=== PATIENT | female | born 1985 | race Caucasian/White ===

== ENCOUNTER 2018-07-26 21:13 | Emergency (ER) | payer OTHER ==
[2018-07-26 22:14] LABS: Absolute Lymphocytes (CBC) 1.8 K/uL (0.7-4.9); Absolute Monocytes 0.8 K/uL (0.1-1.3); Absolute Neutrophil 8.6 K/uL (1.8-8.0); Basophils % 0.2 % (0-1.3); Eosinophils % 0.4 % (0-4.4); Hematocrit 37.8 % (36.0-45.0); MPV 8.9 fL (7.6-11.3); Monocytes % 7.3 % (3.3-12.3)
[2018-07-26 22:17] LABS: Protime INR 1.08
[2018-07-26 22:32] LABS: ALT/SGPT 25 U/L (12-78); AST/SGOT 14 U/L (15-37); Alkaline Phosphatase 62 U/L (45-117); BUN Blood Urea Nitrogen 14 mg/dL (7-18); Bicarbonate 29 mmol/L (21-32); Bilirubin Direct < 0.1 mg/dL (0-0.2); Bilirubin Total 0.3 mg/dL (0.2-1.0); Glucose Level 104 mg/dL (74-106); Magnesium 2.4 mg/dL (1.8-2.4); NT PRO-BNP 17 pg/mL (<125); Potassium 3.9 mmol/L (3.5-5.1); Sodium Level 144 mmol/L (136-145); Troponin (Emerg Dept Use Only) < 0.02 ng/mL (0.0-0.045)
--- NOTE | 2018-07-27 00:47 | EDPHYS ---
Physician Documentation [facility] Name: Neha Carlisle Age: 32 yrs Sex: Female : 1985 Arrival Date: 07/26/2018 Time: 21:18 Bed 17 Private MD: Oscar Ortiz T ED Physician Imer Saldivar HPI: 07/27 00:00 This 32 yrs old Female presents to ER via Ambulatory with complaints of chest pm1 pain. 00:00 The patient or guardian reports chest pain that is located primarily in the mid-sternal pm1 area. The pain does not radiate. Associated signs and symptoms: Pertinent positives: vomiting, Pertinent negatives: dizziness, headache, shortness of breath. The chest pain is described as aching. Duration: The patient or guardian reports a single episode, that is now resolved. Modifying factors: The symptoms are alleviated by nothing. the symptoms are aggravated by Medication. Severity of pain: in the emergency department the pain has resolved is a 0 / 10. The patient has been recently seen by a physician: the patient's primary care provider, Dr. Ortiz Patient seen for cough for 5 days. Given a prescription for cefuroxime and guaifenesin with codeine. After taking the medication, patient experienced chest pain and one episode of vomiting. Patient's first time taking these two medications. 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 - Social history:: Smoking status: Patient/guardian denies using tobacco. - Ebola Screening: : Patient negative for fever greater than or equal to 101.5 degrees Fahrenheit, and additional compatible Ebola Virus Disease symptoms Patient denies exposure to infectious person Patient denies travel to an Ebola-affected area in the 21 days before illness onset No symptoms or risks identified at this time. ROS: 01/11 00:00 Constitutional: Negative for fever, chills, and weight loss, Eyes: Negative for injury, pm1 pain, redness, and discharge, ENT: Negative for injury, pain, and discharge, Neck: Negative for injury, pain, and swelling. Respiratory: Negative for shortness of breath, cough, wheezing, and pleuritic chest pain, Abdomen/GI: Negative for abdominal pain, nausea, vomiting, diarrhea, and constipation, Back: Negative for injury and pain, : Negative for injury, bleeding, discharge, and swelling, MS/Extremity: Negative for injury and deformity, Skin: Negative for injury, rash, and discoloration. Neuro: Negative for headache, weakness, numbness, tingling, and seizure. Cardiovascular: Positive for chest pain, Negative for edema, orthopnea, palpitations. Exam: 00:00 Constitutional: This is a well developed, well nourished patient who is awake, alert, pm1 and in no acute distress. Head/Face: Normocephalic, atraumatic. Eyes: Pupils equal round and reactive to light, extra-ocular motions intact. Lids and lashes normal. Conjunctiva and sclera are non-icteric and not injected. Cornea within normal limits. Periorbital areas with no swelling, redness, or edema. ENT: Nares patent. No nasal discharge, no septal abnormalities noted. Tympanic membranes are normal and external auditory canals are clear. Oropharynx with no redness, swelling, or masses, exudates, or evidence of obstruction, uvula midline. Mucous membranes moist. Neck: Trachea midline, no thyromegaly or masses palpated, and no cervical lymphadenopathy. Supple, full range of motion without nuchal rigidity, or vertebral point tenderness. No Meningismus. Chest/axilla: Normal chest wall appearance and motion. Nontender with no deformity. No lesions are appreciated. Cardiovascular: Regular rate and rhythm with a normal S1 and S2. No gallops, murmurs, or rubs. Normal PMI, no JVD. No pulse deficits. Respiratory: Lungs have equal breath sounds bilaterally, clear to auscultation and percussion. No rales, rhonchi or wheezes noted. No increased work of breathing, no retractions or nasal flaring. Abdomen/GI: Soft, non-tender, with normal bowel sounds. No distension or tympany. No guarding or rebound. No evidence of tenderness throughout. 00:00 Back: No spinal tenderness. No costovertebral tenderness. Full range of motion. Skin: Warm, dry with normal turgor. Normal color with no rashes, no lesions, and no evidence of cellulitis. MS/ Extremity: Pulses equal, no cyanosis. Neurovascular intact. Full, normal range of motion. 00:00 sinus bradycardia BPM 50 00:00 Neuro: Orientation: is normal, Motor: is normal, Sensation: is normal, no obvious gross deficits. Vital Signs: 07/26 21:31 BP 104 / 73; Pulse 70; Resp 20; Temp 98.9; Pulse Ox 100% on R/A; Weight 81.65 kg; aj Height 5 ft. 5 in. (165.10 cm); 22:22 BP 94 / 71; Pulse 66; Resp 16 S; Pulse Ox 98% on R/A; jd3 23:07 BP 95 / 57; Pulse 69; Resp 15 S; Pulse Ox 99% on R/A; jd3 07/27 00:07 BP 103 / 70; Pulse 56; Resp 16 S; Pulse Ox 98% on R/A; jd3 07/26 21:31 Body Mass Index 29.95 (81.65 kg, 165.10 cm) aj MDM: 07/26 21:41 Patient medically screened. pm1 07/27 00:43 Data reviewed: vital signs. Data interpreted: Pulse oximetry: on room air is 98 %. pm1 Interpretation: normal. Counseling: I had a detailed discussion with the patient and/or guardian regarding: the historical points, exam findings, and any diagnostic results supporting the discharge/admit diagnosis, lab results, radiology results, the need for outpatient follow up, to return to the emergency department if symptoms worsen or persist or if there are any questions or concerns that arise at home. 07/26 21:49 Order name: NT PRO-BNP; Complete Time: 22:46 pm1 07/26 21:49 Order name: Basic Metabolic Panel; Complete Time: 22:46 pm1 07/26 21:49 Order name: CBC with Diff; Complete Time: 22:46 pm1 07/26 21:49 Order name: LFT's; Complete Time: 22:46 pm1 07/26 21:49 Order name: Magnesium; Complete Time: 22:46 pm1 07/26 21:49 Order name: PT-INR; Complete Time: 22:46 pm1 07/26 21:49 Order name: Troponin (emerg Dept Use Only); Complete Time: 22:46 pm1 07/26 21:49 Order name: XRAY Chest (1 view) pm1 07/26 21:49 Order name: EKG; Complete Time: 21:49 pm1 07/26 21:49 Order name: Cardiac monitoring; Complete Time: 22:15 pm1 07/26 21:49 Order name: EKG - Nurse/Tech; Complete Time: 22:15 pm1 07/26 21:49 Order name: Flu; Complete Time: 22:46 pm1 07/26 21:49 Order name: Strep; Complete Time: 22:46 pm1 07/26 22:20 Order name: Throat Culture [facility] 07/26 21:49 Order name: IV Saline Lock; Complete Time: 22:06 pm1 07/26 21:49 Order name: Labs collected and sent; Complete Time: 22:06 pm1 07/26 21:49 Order name: O2 Per Protocol; Complete Time: 21:52 pm1 07/26 21:49 Order name: O2 Sat Monitoring; Complete Time: 21:51 pm1 Administered Medications: No medications were administered Disposition: 02:03 Co-signature as Attending Physician, Imer Saldivar MD I agree with the assessment and mi plan of care. Disposition: 07/27/18 00:46 Discharged to Home. Impression: Chest pain, unspecified. - Condition is Stable. - Discharge Instructions: Nonspecific Chest Pain. - Medication Reconciliation Form, Thank You Letter, Antibiotic Education form. - Follow up: Emergency Department; When: As needed; Reason: Worsening of condition. Follow up: Private Physician; When: 2 - 3 days; Reason: Recheck today's complaints, Continuance of care, Re-evaluation by your physician. - Problem is new. - Symptoms have improved. Signatures: Dispatcher [employer] [facility] Yancy Leiva RN RN aj Marinas, Patrick, ANODISER ANODISER pm1 Imer Saldivar MD MD wa Davies, Jonathon, RN RN jd3 Corrections: (The following items were deleted from the chart) 00:59 00:46 07/27/2018 00:46 Discharged to Home. Impression: Chest pain, unspecified. jd3 Condition is Stable. Forms are Medication Reconciliation Form, Thank You Letter, Antibiotic Education, Prescription Opioid Use. Follow up: Emergency Department; When: As needed; Reason: Worsening of condition. Follow up: Private Physician; When: 2 - 3 days; Reason: Recheck today's complaints, Continuance of care, Re-evaluation by your physician. Problem is new. Symptoms have improved. pm1
--- NOTE | 2018-07-27 00:47 | ER ---
Nurse's Notes [facility] Name: Neha Carlisle Age: 32 yrs Sex: Female : 1985 Arrival Date: 07/26/2018 Time: 21:18 Bed 17 Private MD: Oscar Ortiz T Diagnosis: Chest pain, unspecified Presentation: 07/26 21:28 Presenting complaint: Patient states: Sudden onset chest pain, vomiting, anxiety that aj started today 30 min after taking Ceftriaxone and Cheratussin tonight for the first time. Transition of care: patient was not received from another setting of care. Onset of symptoms was July 26, 2018. Risk Assessment: Do you want to hurt yourself or someone else? Patient reports no desire to harm self or others. Initial Sepsis Screen: Does the patient meet any 2 criteria? No. Patient's initial sepsis screen is negative. Does the patient have a suspected source of infection? No. Patient's initial sepsis screen is negative. Care prior to arrival: None. 21:28 Method Of Arrival: Ambulatory aj 21:28 Acuity: GENNA 3 aj Triage Assessment: 21:31 General: Appears in no apparent distress. comfortable, Behavior is calm, cooperative, aj appropriate for age. Pain: Denies pain. Neuro: Level of Consciousness is awake, alert, obeys commands, Oriented to person, place, time, situation, Appropriate for age. Cardiovascular: Reports chest pain. Respiratory: Airway is patent Respiratory effort is even, unlabored, Respiratory pattern is regular, symmetrical. GI: Reports nausea, vomiting. Derm: Skin is intact, is healthy with good turgor, Skin is pink, warm \T\ dry. normal. 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 - Social history:: Smoking status: Patient/guardian denies using tobacco. - Ebola Screening: : Patient negative for fever greater than or equal to 101.5 degrees Fahrenheit, and additional compatible Ebola Virus Disease symptoms Patient denies exposure to infectious person Patient denies travel to an Ebola-affected area in the 21 days before illness onset No symptoms or risks identified at this time. Screenin:44 Abuse screen: Denies threats or abuse. Nutritional screening: No deficits noted. jd3 Tuberculosis screening: No symptoms or risk factors identified. Fall Risk Ambulatory Aid- None/Bed Rest/Nurse Assist (0 pts). Gait- Normal/Bed Rest/Wheelchair (0 pts) Mental Status- Oriented to own ability (0 pts). Total Williamson Fall Scale indicates No Risk (0-24 pts). Assessment: 21:42 General: Appears uncomfortable, Behavior is cooperative, appropriate for age, anxious. jd3 Pain: Complains of pain in mid-sternal area and epigastric area Quality of pain is described as sharp. Neuro: Level of Consciousness is awake, alert, obeys commands, Oriented to person, place, time, situation. Cardiovascular: Heart tones S1 S2 present Capillary refill < 3 seconds Patient's skin is warm and dry. Respiratory: Reports shortness of breath cough that is Airway is patent Respiratory effort is even, unlabored, Respiratory pattern is regular, symmetrical, Breath sounds are clear bilaterally. GI: Abdomen is round non-distended, Bowel sounds present X 4 quads. Abd is soft and non tender X 4 quads. Reports upper abdominal pain, nausea, vomiting, Patient currently denies constipation, diarrhea. : No signs and/or symptoms were reported regarding the genitourinary system. EENT: No signs and/or symptoms were reported regarding the EENT system. Derm: Skin is intact, Skin is dry, Skin is normal, Skin temperature is warm. Musculoskeletal: Circulation, motion, and sensation intact. Range of motion: intact in all extremities. 22:22 Reassessment: Patient appears in no apparent distress at this time. Patient and/or jd3 family updated on plan of care and expected duration. Pain level reassessed. Patient is alert, oriented x 3, equal unlabored respirations, skin warm/dry/pink. 23:07 Reassessment: Patient appears in no apparent distress at this time. Patient and/or jd3 family updated on plan of care and expected duration. Pain level reassessed. Patient is alert, oriented x 3, equal unlabored respirations, skin warm/dry/pink. 07/27 00:07 Reassessment: Patient appears in no apparent distress at this time. Patient and/or jd3 family updated on plan of care and expected duration. Pain level reassessed. Patient is alert, oriented x 3, equal unlabored respirations, skin warm/dry/pink. Patient states feeling better. 00:58 Reassessment: Patient appears in no apparent distress at this time. Patient and/or jd3 family updated on plan of care and expected duration. Pain level reassessed. Patient is alert, oriented x 3, equal unlabored respirations, skin warm/dry/pink. pt reported understanding of discharge instructions. Vital Signs: 07/26 21:31 BP 104 / 73; Pulse 70; Resp 20; Temp 98.9; Pulse Ox 100% on R/A; Weight 81.65 kg; aj Height 5 ft. 5 in. (165.10 cm); 22:22 BP 94 / 71; Pulse 66; Resp 16 S; Pulse Ox 98% on R/A; jd3 23:07 BP 95 / 57; Pulse 69; Resp 15 S; Pulse Ox 99% on R/A; jd3 07/27 00:07 BP 103 / 70; Pulse 56; Resp 16 S; Pulse Ox 98% on R/A; jd3 07/26 21:31 Body Mass Index 29.95 (81.65 kg, 165.10 cm) ED Course: 07/26 21:18 Patient arrived in ED. am2 21:19 Oscar Ortiz MD is Private Physician. am2 21:29 Triage completed. aj 21:31 Arm band placed on right wrist. Patient placed in an exam room. aj 21:34 Judd Salinas NP is PHCP. pm1 21:34 Imer Saldivar MD is Attending Physician. pm1 21:38 Jose Miguel Ortiz RN is Primary Nurse. jd3 21:44 Patient has correct armband on for positive identification. Bed in low position. Call jd3 light in reach. Side rails up X 1. Adult w/ patient. 22:00 Inserted saline lock: 20 gauge in right antecubital area, using aseptic technique. jd3 Blood collected. 22:32 XRAY Chest (1 view) In Process Unspecified. EDMS 01/11 00:54 No provider procedures requiring assistance completed. IV discontinued, intact, jd3 bleeding controlled, No redness/swelling at site. Pressure dressing applied. Administered Medications: No medications were administered Outcome: 00:46 Discharge ordered by MD. pm1 00:57 Discharged to home ambulatory, with family. jd3 00:57 Condition: stable 00:57 Discharge instructions given to patient, family, Instructed on discharge instructions, follow up and referral plans. Demonstrated understanding of instructions, follow-up care. 00:59 Patient left the ED. jd3 Signatures: Dispatcher [employer] EDYancy Spencer, RN RN Judd Smith NP CANCER GENETIC COUNSELOR pm1 Yancy Sinha am2 Jose Miguel Ortiz RN RN jd3 Corrections: (The following items were deleted from the chart) 00:57 07/26 23:45 Inserted saline lock: 20 gauge in right antecubital area, using aseptic jd3 technique. Blood collected. jd3
--- NOTE | 2018-07-27 07:46 | RAD REPORT ---
EXAM DESCRIPTION: Leroy Single View07/26/2018 10:32 pm CLINICAL HISTORY: Chest pain COMPARISON: none FINDINGS: The lungs appear clear of acute infiltrate. The heart is normal size IMPRESSION: No acute abnormalities displayed
--- NOTE | 2018-07-27 09:39 | EKG ---
Test Date: 2018-07-26 Test Time: 22:10:04 Byproducts Extractor: NIHARIKA MEASUREMENT RESULTS: Intervals: Rate: 50 SC: 126 QRSD: 96 QT: 468 QTc: 426 [place]: P: 45 SC: 126 QRS: 53 T: 52 INTERPRETIVE STATEMENTS: Sinus bradycardia Otherwise normal ECG No previous ECG available for comparison Electronically Signed On 07-27-18 09:38:12 CLINICAL TRAINER by Andrew Torres
== END 2018-07-27 00:59 | disposition home or self-care (01) ==
LOC: ER 21:13
DX: R07.9 Chest pain, unspecified (principal); E03.9 Hypothyroidism, unspecified; Z79.899 Other long term (current) drug therapy
CPT/HCPCS: 36415; 71045; 80048; 80076; 83735; 83880; 84484; 85025; 85610; 87070; 87081; 87804; 93005; 99284

== ENCOUNTER 2019-01-21 08:32 | Day surgery (SDC) | payer BC ==
[2019-01-16 16:33] LABS: Basophils % 0.6 % (0-1.3); Eosinophils % 1.3 % (0-4.4); Hematocrit 36.5 % (36.0-45.0); Lymphocytes % 29.6 % (15.3-44.8); MPV 9.5 fL (7.6-11.3); Monocytes % 5.8 % (3.3-12.3); RBC Red Blood Cell Count 4.57 M/uL (3.86-4.86)
[2019-01-16 16:46] LABS: Potassium 3.8 mmol/L (3.5-5.1)
[2019-01-16 17:17] LABS: ALT/SGPT 21 U/L (12-78); AST/SGOT 15 U/L (15-37); Albumin 4.1 g/dL (3.4-5.0); Alkaline Phosphatase 57 U/L (45-117); Amylase Level 45 U/L (25-115); Bilirubin Direct < 0.1 mg/dL (0-0.2); Bilirubin Total 0.2 mg/dL (0.2-1.0); Lipase 160 U/L (73-393); Protein, Total 7.8 g/dL (6.4-8.2)
[2019-01-21] MEDS: Ringers Lactate 1,000 ML IV ONE (08:40)
[2019-01-21 09:09] LABS: Specific Gravity 1.025 (1.005-1.030)
[2019-01-21] MEDS ORDERED: CEFOXITIN/SWI 1gm 1 GM/10 ML SYR ONE (09:24)
[2019-01-21] MEDS ORDERED: FENTANYL CITR 100 MCG/2 ML ONE (10:13)
[2019-01-21] MEDS ORDERED: MIDAZOLAM HCL 2 MG/2 ML INJ ONE (10:13)
[2019-01-21] MEDS ORDERED: PROPOFOL 200 MG/20 ML VIAL IV ONE (10:13)
[2019-01-21] MEDS ORDERED: LIDOCAINE 2% MPF 5 ML VIAL ONE (10:14)
[2019-01-21] MEDS ORDERED: ROCURONIUM 50 MG/5 ML VIAL IV ONE (10:15)
[2019-01-21] MEDS ORDERED: ONDANSETRON 4 MG/2 ML VIAL ONE (10:15)
[2019-01-21] MEDS ORDERED: EPHEDRINE SULF 50 MG/ML VIAL ONE (10:56)
--- NOTE | 2019-01-21 10:59 | P.BOP ---
Preoperative diagnosis: symptomatic cholelithiasis Postoperative diagnosis: same Primary procedure: Laparoscopic cholecystectomy Observer Gravity Prospecting: Naomi Shankar (Kerri) Estimated blood loss: <10cc Specimen: gb Findings: as above Anesthesia: General Complications: None Transferred to: Recovery Room Condition: Good
[2019-01-21] MEDS: HYDROMORPHONE HCL 1 MG/ML INJ ONE ×4 (11:11→11:50)
[2019-01-21] MEDS ORDERED: NEOSTIGMINE 1 MG/ML -10 ML VIAL ONE (11:13)
[2019-01-21] MEDS ORDERED: GLYCOPYRROLATE 0.2 MG/ML SYR ONE (11:13)
[2019-01-21] MEDS ORDERED: KETOROLAC 30 MG/ML INJ ONE (11:20)
[2019-01-21] MEDS ORDERED: PROMETHAZINE 25 MG/ML VIAL ONE (11:25)
--- NOTE | 2019-01-21 22:13 | OP ---
Date of Procedure: 01/21/2019 Surgeon: Shayan Parkinson MD Community Support Specialist: Naomi Shankar. Preoperative Diagnosis: Symptomatic cholelithiasis. Postoperative Diagnosis: Symptomatic cholelithiasis. Procedure: Laparoscopic cholecystectomy. Specimen: Gallbladder. Anesthesia: General plus local. Indications: This is the case of a 33-year-old patient, who comes to us with above diagnosis. Fully explained the benefit, alternatives, and risks of laparoscopic, possible open cholecystectomy, which include but not limited to infection, bleeding, damage to adjacent structures, anesthesia complicati on, choledocholithiasis, bile leak, pancreatitis, [place], and even . She also understands this may not relieve any symptoms and she might need more than one surgical intervention. She understood, sig ely the consent. Description Of Procedure: The patient was brought to the operating room, placed in supine position. Anesthesia was done without complication. Abdominal area was prepped and draped in usual sterile fa shion. Marcaine 0.5% was injected for local anesthetic, followed by sharp incision of the skin in th e infraumbilical region. Incision was carried down to the fascia, which was opened under direct visi on. Peritoneum was encountered, opened under direct vision. Vicryl #1 placed on each side of the fa scia. Cat trocar was carefully introduced and pneumoperitoneum was obtained. I placed 3 more tro cars, 5 mm each one of them, in the right upper quadrant using same technique under direct visualizat ion. Some adhesions of the omentum to the liver and the gallbladder need to be removed first in orde r for us to continue with the surgery, so we used Endo Galen, connected to Bovie cauterizer to achie ve that. No bleeding. No enterotomies. At that moment, I proceeded to put a grasper in the fundus of the gallbladder, another grasper in the infundibulum, retracted the gallbladder in the inferolater al fashion exposing the triangle of Calot obtaining critical view of safety. Cystic duct and cystic artery were clearly isolated and freed circumferentially, and a connection between those and the gall bladder was clearly identified. I proceeded to ligate those by using at least 3 clips proximal and 1 clip distal, ligation in middle. Same was done with the cystic artery. No bile leak. No bleeding. The gallbladder was removed from liver using Bovie cauterizer and removed from abdominal cavity usi ng an EndoCatch through the umbilical incision. The area was inspected once again. No bile leak. N o bleeding. At that moment, I proceeded to remove the trocars under direct vision. Deflated the pne umoperitoneum. Closed the fascia with #1 Vicryl. Irrigated the subcutaneous tissues, closed that wi th 3-0 chromic and the skin in subcuticular fashion with 3-0 chromic and Steri-Strips on top. Sponge count and instrument counts were correct. The patient tolerated the procedure well. The patient wa s sent to recovery in stable condition. CARLOS/YANNICK Voice ID: [id number] Report ID: [id number]
--- NOTE | 2019-01-21 22:20 | DS ---
Date of Discharge: 01/21/2019 Diagnosis: Symptomatic cholelithiasis. Procedure: Laparoscopic cholecystectomy. Disposition: Home. Activities: As tolerated, no heavy lifting. Followup: Follow up in my office in 1 week, call for appointment on [phone]. Keep area dry for 48 hours, then may shower. Keep Steri-Strip intact. Medications: For medications, see orders. CARLOS/YANNICK Voice ID: [id number] Report ID: [id number]
== END 2019-01-21 13:35 | disposition home or self-care (01) ==
LOC: OR 08:32
PROVIDERS: ATTEND Surgery
PROC: 0FT44ZZ Resection of Gallbladder, Percutaneous Endoscopic Approach (ICD-10-PCS; principal; 2019-01-21 10:45)
DX: K80.10 Calculus of gallbladder with chronic cholecystitis without obstruction (principal); E03.9 Hypothyroidism, unspecified; J45.909 Unspecified asthma, uncomplicated; Z80.1 Family history of malignant neoplasm of trachea, bronchus and lung
CPT/HCPCS: 36415; 80048; 80076; 81025; 82150; 83690; 85025; 88304; J1170; J2250; J2405; J2550; J2704; J2710; J3010

== ENCOUNTER 2023-10-26 20:52 | Observation (INO) | payer BC, OTHER ==
--- OUTSIDE RECORDS SUMMARY | 2023-10-26 20:54 | XMS REPORT | Continuity of Care Document ---
Author Name Unknown Address [address] [place] [address] [facility] thconnect Address [address] [place] [address] Care Team Providers Care Pari Mutuel Ticket Seller Name Role Phone HARRIET MTZ Primary Care Physician Unavaila hero LYNNE Attending Clinician Unavailable AMADOU RAMIREZ Attending Clinician Unavailable GUERA Admitting Clinician Unavailable Payers Payer Name Policy Type Policy Number Effective Date Expirati on Date Source [facility] [id number] 2017 00:00:00 Allergies, Adverse Reactions, Alerts Allergy Name Allergy Type Status Severity Reaction(s) Onset Date Inactive Date Treating Clinician Comments Source NO KNOWN ALLERGIE S Drug Class Active [facility] Encounters Start Date/Time End Date/Time Encounter Type Admission Type Attending Clinicians Care Facility Care Department Encounter ID Source 2022-01-25 04:45:00 2022-01-25 04:45:00 Outpatient NATALIA FELDMAN [facility] [id number] [facility] 2021-07-23 13:43:00 2021-07-23 14:19:00 Emergency X AMADOU RAMIREZ [facility] ERT [id number] [facility]
[2023-10-26] MEDS ORDERED: ONDANSETRON 4 MG/2 ML VIAL ONE (21:30)
[2023-10-26] MEDS ORDERED: FAMOTIDINE 20 MG/2 ML VIAL IV ONE (21:31)
[2023-10-26] MEDS ORDERED: MORPHINE 4 MG/ML SYR ONE (21:31)
[2023-10-26] MEDS ORDERED: NA CHLORIDE 0.9% 1,000 ML ONE (21:31)
[2023-10-26 21:37] LABS: Absolute Lymphocytes (CBC) 1.7 K/uL (0.7-4.9); Absolute Monocytes 0.6 K/uL (0.1-1.3); Absolute Neutrophil 8.2 K/uL (1.8-8.0); Basophils % 0.2 % (0-1.3); Eosinophils % 0.4 % (0-4.4); Hematocrit 39.9 % (36.0-45.0); Hemoglobin 13.9 g/dL (12.0-15.0); MCH 31.5 pg (27.0-35.0); MCHC 34.8 g/dL (32.0-36.0); MCV 90.4 fL (80-100); MPV 8.1 fL (7.6-11.3); Monocytes % 5.6 % (3.3-12.3); Neutrophils % 77.8 % (41.7-73.7); Platelets 240 thou/uL (152-406); RBC Red Blood Cell Count 4.41 M/uL (3.86-4.86)
[2023-10-26 21:59] LABS: Albumin 3.9 g/dL (3.4-5.0); Anion Gap 6.6 mEq/L (5.0-15.0); Bilirubin Total 0.6 mg/dL (0.2-1.0); Globulin 3.8 g/dL (2.3-3.5); Potassium 3.6 mEq/L (3.5-5.1); Protein, Total 7.7 g/dL (6.4-8.2)
[2023-10-26 22:26] LABS: Specific Gravity > 1.030 (1.005-1.030); Urine Bacteria <20 /HPF (<20); Urine Bilirubin NEGATIVE (Negative); Urine Blood Negative (Negative); Urine Clarity Extremely Turbid (Clear); Urine Color Yellow (Yellow); Urine Crystals Unidentified Few /HPF (None Seen); Urine Culture Reflex Order REFLEXED; Urine Glucose NEGATIVE (Negative); Urine Ketones 1+ (Negative); Urine Microscopic Reflex YN ORDER UMIC; Urine Mucus 4+ /HPF (None Seen); Urine Nitrite NEGATIVE (Negative); Urine Protein 1+ (Negative); Urine Urobilinogen Normal (Normal); Urine Yeast (Budding) Trace /HPF (None Seen)
[2023-10-26] MEDS ORDERED: KETOROLAC 30 MG/ML INJ ONE (23:06)
[2023-10-27] MEDS ORDERED: PIPERACIL/TAZO 3.375 GM VIAL IV ONE (00:23)
[2023-10-27] MEDS ORDERED: NA CHLORIDE 0.9% 100 ML ONE (00:23)
--- NOTE | 2023-10-27 00:28 | ER ---
Nurse's Notes [facility] Name: Neha Gautam Age: 38 yrs Sex: Female : 1985 Arrival Date: 10/26/2023 Time: 20:52 Bed 8 Private MD: Diagnosis: acute appendicitis Presentation: 10/25 21:00 Chief complaint: Patient states: Pt c/o severe upper abdominal pain and constant tl4 vomiting since 1930 tonight. Pt states symptoms started immediately after eating. Coronavirus screen: At this time, the client does not indicate any symptoms associated with coronavirus-19. Ebola Screen: No symptoms or risks identified at this time. Initial Sepsis Screen: Does the patient meet any 2 criteria? No. Patient's initial sepsis screen is negative. Does the patient have a suspected source of infection? No. Patient's initial sepsis screen is negative. Risk Assessment: Do you want to hurt yourself or someone else? Patient reports no desire to harm self or others. Onset of symptoms was October 26, 2023 at 19:30. 21:00 Method Of Arrival: Ambulatory tl4 21:00 Acuity: GENNA 3 tl4 Triage Assessment: 21:05 General: Appears uncomfortable, Behavior is cooperative. Pain: Complains of pain in tl4 abdomen. EENT: No signs and/or symptoms were reported regarding the EENT system. Neuro: Level of Consciousness is awake, alert, obeys commands, Oriented to person, place, time, situation, Moves all extremities. Gait is steady. Cardiovascular: Capillary refill < 3 seconds Patient's skin is warm and dry. Respiratory: Airway is patent Respiratory effort is even, unlabored, Respiratory pattern is regular, symmetrical. GI: Reports upper abdominal pain, nausea, vomiting. : No signs and/or symptoms were reported regarding the genitourinary system. Derm: No signs and/or symptoms reported regarding the dermatologic system. Musculoskeletal: No signs and/or symptoms reported regarding the musculoskeletal system. Historical: - Allergies: 21:03 No Known Allergies; tl4 - Home Meds: 21:03 [place] Thyroid Oral [Active]; Spironolactone Oral [Active]; semaglutide (weight loss) tl4 subcutaneous [Active]; - PMHx: 21:03 Clarissa's (Hypothyroidism); tl4 - PSHx: 21:11 Cholecystectomy; tl4 - Immunization history:: Adult Immunizations unknown. - Infectious Disease History:: Denies. - Social history:: Smoking status: Patient denies any tobacco usage or history of. Screenin:33 [facility] ED Fall Risk Assessment (Adult) History of falling in the last 3 months, tm6 including since admission No falls in past 3 months (0 pts). Abuse screen: Denies threats or abuse. Denies injuries from another. Nutritional screening: No deficits noted. Tuberculosis screening: No symptoms or risk factors identified. Assessment: 21:33 General: Appears uncomfortable, Behavior is calm, cooperative. Pain: Complains of pain tm6 in epigastric area Pain currently is 10 out of 10 on a pain scale. Quality of pain is described as sharp, Pain began suddenly, 2 hours ago. Pain: Also complains of nausea. Neuro: No deficits noted. Level of Consciousness is awake, alert, obeys commands, Oriented to person, place, time, situation. Cardiovascular: No deficits noted. Patient's skin is warm and dry. Respiratory: Airway is patent Respiratory effort is even, unlabored, Respiratory pattern is regular, symmetrical. GI: Abdomen is round non-distended, Abd is soft and non tender Reports upper abdominal pain, nausea, vomiting. : No signs and/or symptoms were reported regarding the genitourinary system. EENT: No signs and/or symptoms were reported regarding the EENT system. Derm: No signs and/or symptoms reported regarding the dermatologic system. Musculoskeletal: No signs and/or symptoms reported regarding the musculoskeletal system. 22:30 Reassessment: Patient and/or family updated on plan of care and expected duration. Pain ha1 level reassessed. Patient is alert, oriented x 3, equal unlabored respirations, skin warm/dry/pink. pain unchanged with medication Notified care provider. 23:10 Reassessment: Patient and/or family updated on plan of care and expected duration. Pain tm6 level reassessed. Patient is alert, oriented x 3, equal unlabored respirations, skin warm/dry/pink. 10/26 00:10 Reassessment: Patient and/or family updated on plan of care and expected duration. Pain ha1 level reassessed. Patient is alert, oriented x 3, equal unlabored respirations, skin warm/dry/pink. Vital Signs: 10/25 21:00 BP 105 / 56; Pulse 64; Resp 18; Temp 97.9(O); Pulse Ox 100% on R/A; Weight 86.18 kg; tl4 Height 5 ft. 6 in. ; Pain 8/10; 21:33 BP 107 / 79; Pulse 63; Pulse Ox 100% on R/A; Pain 10/10; tm6 23:10 BP 124 / 84; Pulse 64; Pulse Ox 100% ; Pain 8/10; tm6 10/26 01:38 BP 113 / 68; Pulse 59; Pulse Ox 96% on R/A; tm6 10/25 21:00 Body Mass Index 30.67 (86.18 kg, 167.64 cm) tl4 10/25 21:00 Pain Scale: Adult tl4 21:33 Pain Scale: Adult tm6 23:10 Pain Scale: Adult tm6 ED Course: 10/25 20:56 Patient arrived in ED. ra3 20:57 Nimco Loo PA-C is PHCP. sb4 20:57 Anthony Jones MD is Attending Physician. sb4 21:03 Triage completed. tl4 21:06 Arm band placed on right wrist. tl4 21:21 Laurie Madrid RN is Primary Nurse. tm6 21:30 CBC with Diff Sent. tm6 21:30 CMP Sent. tm6 21:30 Lipase Sent. tm6 21:30 Inserted saline lock: 20 gauge in right antecubital area, using aseptic technique. tm6 21:33 Patient has correct armband on for positive identification. Placed in gown. Bed in low tm6 position. Call light in reach. Side rails up X2. Provided Education on: plan of care. Client placed on continuous cardiac and pulse oximetry monitoring. NIBP monitoring applied. Pulse ox on. NIBP on. Door closed. Noise minimized. Warm blanket given. 23:03 CT Abd/Pelvis - IV Contrast Only In Process Unspecified. EDMS 10/26 00:27 Korina Russo MD is Hospitalizing Provider. sb4 01:37 No provider procedures requiring assistance completed. Patient admitted, IV remains in tm6 place. Administered Medications: 10/25 21:33 Drug: NS 0.9% IV 1000 ml IV at 1 bolus Per protocol; 1000 mL bolus Route: IV; Rate: 1 ha1 bolus; Site: right antecubital; 23:09 Follow up: Response: No adverse reaction; IV Status: Completed infusion; IV Intake: tm6 1000ml 21:33 Drug: Famotidine IVP 20 mg IVP once; dilute with 10 mL 0.9% NaCl; give over 2 minutes ha1 Route: IVP; Site: right antecubital; 21:35 Drug: Ondansetron IVP 4 mg IVP once; over 2 minutes Route: IVP; Site: right antecubital;ha1 21:37 Drug: morphine IVP or IV 4 mg IVP once over 4 mins Route: IVP; Infused Over: 4 mins; ha1 Site: right antecubital; 23:09 Drug: Ketorolac IVP 30 mg IVP once Route: IVP; Site: right antecubital; tm6 04 00:37 Drug: Piperacillin-Tazobactam IVPB 3.375 grams IVPB once over 60 mins; (mix in NS 100 tm6 mL) Route: IVPB; Infused Over: 60 mins; Site: right antecubital; 00:50 Drug: fentaNYL (PF) IVP 50 mcg IVP once Route: IVP; Site: right antecubital; tm6 Medication: 10/25 21:33 VIS not applicable for this client. tm6 Intake: 23:09 IV: 1000ml; Total: 1000ml. tm6 Outcome: 10/26 00:27 Decision to Hospitalize by Provider. sb4 01:38 Admitted to Med/surg accompanied by tech, via wheelchair, with chart, tm6 01:38 Condition: stable 01:38 Instructed on the need for admit, 01:38 Patient left the ED. tm6 Signatures: Dispatcher [employer] EDMS Tyesha Kiran RN RN ha1 Nimco Loo, PABill PABill sb4 Laurie Madrid RN RN tm6 Reymundo Morrissey RN RN tl4 Amina Spencer ra3 Corrections: (The following items were deleted from the chart) 10/25 21:05 21:03 Home Meds: Cheratussin AC 10-100 mg/5 mL Oral liqd 10 mL every 4 hours; tl4 tl4 21:05 21:03 PMHx: Hypothyroidism; tl4 tl4 21:12 21:03 PSHx: None; tl4 tl4
--- NOTE | 2023-10-27 00:28 | EDPHYS ---
Physician Documentation [facility] Name: Neha Gautam Age: 38 yrs Sex: Female : 1985 Arrival Date: 10/26/2023 Time: 20:52 Bed 8 Private MD: ED Physician Anthony Jones HPI: 10/25 21:14 This 38 yrs old Female presents to ER via Ambulatory with complaints of Nausea/Vomiting.sb4 21:14 The patient presents to the emergency department with nausea, vomiting, abdominal pain, sb4 of the epigastric area, right upper quadrant and left upper quadrant. Onset: The symptoms/episode began/occurred just prior to arrival. Possible causes: unknown. The symptoms are aggravated by nothing. The symptoms are alleviated by nothing. The patient has not experienced similar symptoms in the past. The patient has not recently seen a physician. Historical: - Allergies: 21:03 No Known Allergies; tl4 - Home Meds: 21:03 [place] Thyroid Oral [Active]; Spironolactone Oral [Active]; semaglutide (weight loss) tl4 subcutaneous [Active]; - PMHx: 21:03 Clarissa's (Hypothyroidism); tl4 - PSHx: 21:11 Cholecystectomy; tl4 - Immunization history:: Adult Immunizations unknown. - Infectious Disease History:: Denies. - Social history:: Smoking status: Patient denies any tobacco usage or history of. ROS: 21:14 Constitutional: Negative for fever, chills, and weight loss, sb4 21:14 Abdomen/GI: Positive for abdominal pain, nausea and vomiting, 21:14 All other systems are negative, Exam: 21:14 Head/Face: Normocephalic, atraumatic. Eyes: Extra-ocular motions intact. Periorbital sb4 areas with no swelling, redness, or edema. ENT: Mucous membranes moist. Cardiovascular: Regular rate and rhythm with a normal S1 and S2. Respiratory: Lungs have equal breath sounds bilaterally, clear to auscultation and percussion. No rales, rhonchi or wheezes noted. No increased work of breathing, no retractions or nasal flaring. Skin: Warm, dry with normal turgor. Normal color with no rashes, no lesions, and no evidence of cellulitis. MS/ Extremity: Pulses equal, no cyanosis. Neurovascular intact. Full, normal range of motion. 21:14 Constitutional: The patient appears alert, awake, in obvious pain, uncomfortable, 21:14 Abdomen/GI: Inspection: abdomen appears normal, Bowel sounds: normal, Palpation: soft, moderate abdominal tenderness, in the epigastric area, right upper quadrant and left upper quadrant, Vital Signs: 21:00 BP 105 / 56; Pulse 64; Resp 18; Temp 97.9(O); Pulse Ox 100% on R/A; Weight 86.18 kg; tl4 Height 5 ft. 6 in. ; Pain 8/10; 21:33 BP 107 / 79; Pulse 63; Pulse Ox 100% on R/A; Pain 10/10; tm6 23:10 BP 124 / 84; Pulse 64; Pulse Ox 100% ; Pain 8/10; tm6 04 01:38 BP 113 / 68; Pulse 59; Pulse Ox 96% on R/A; tm6 10/25 21:00 Body Mass Index 30.67 (86.18 kg, 167.64 cm) tl4 10/25 21:00 Pain Scale: Adult tl4 21:33 Pain Scale: Adult tm6 23:10 Pain Scale: Adult tm6 MDM: 10/25 21:08 Patient medically screened. sb4 21:14 Differential diagnosis: gastritis, pancreatitis, gastroenteritis. 4 10/26 00:27 Data reviewed: vital signs, nurses notes, lab test result(s), radiologic studies, I sb4 have discussed the patient's presentation/case with the attending Emergency Department Physician; and as a result, I will admit patient. Consideration of Admission/Observation Patient was admitted/placed on observation. Management of patient was discussed with the following: Hospitalist: Dr. Russo. Supervisor [place] Sugar: Dr. Biswas, will take patient to OR in morning. 10/25 21:12 Order name: CBC with Diff; Complete Time: 22:08 [facility] 10/25 21:12 Order name: CMP; Complete Time: 22:08 [facility] 10/25 21:12 Order name: Lipase; Complete Time: 22:08 [facility] 10/25 21:12 Order name: Test, Urine; Complete Time: 22:28 [facility] 10/25 21:12 Order name: Urinalysis w/ reflexes; Complete Time: 22:28 [facility] 10/25 22:30 Order name: Urine Culture [facility] 10/26 00:47 Order name: CBC with Automated Diff EDMS 10/26 00:47 Order name: CBC with Automated Diff [facility] 10/26 00:47 Order name: Comprehensive Metabolic Panel [facility] 10/26 00:47 Order name: Comprehensive Metabolic Panel [facility] 10/25 21:12 Order name: CT Abd/Pelvis - IV Contrast Only sb4 10/26 00:47 Order name: CONS Physician Consult ED[facility] 10/25 21:12 Order name: IV Saline Lock; Complete Time: 21:30 sb4 10/25 21:12 Order name: Labs collected and sent; Complete Time: 21:30 sb4 10/26 00:26 Order name: NPO; Complete Time: 00:37 sb4 Administered Medications: 10/25 21:33 Drug: NS 0.9% IV 1000 ml IV at 1 bolus Per protocol; 1000 mL bolus Route: IV; Rate: 1 ha1 bolus; Site: right antecubital; 23:09 Follow up: Response: No adverse reaction; IV Status: Completed infusion; IV Intake: tm6 1000ml 21:33 Drug: Famotidine IVP 20 mg IVP once; dilute with 10 mL 0.9% NaCl; give over 2 minutes ha1 Route: IVP; Site: right antecubital; 21:35 Drug: Ondansetron IVP 4 mg IVP once; over 2 minutes Route: IVP; Site: right antecubital;ha1 21:37 Drug: morphine IVP or IV 4 mg IVP once over 4 mins Route: IVP; Infused Over: 4 mins; ha1 Site: right antecubital; 23:09 Drug: Ketorolac IVP 30 mg IVP once Route: IVP; Site: right antecubital; tm6 10/26 00:37 Drug: Piperacillin-Tazobactam IVPB 3.375 grams IVPB once over 60 mins; (mix in NS 100 tm6 mL) Route: IVPB; Infused Over: 60 mins; Site: right antecubital; 00:50 Drug: fentaNYL (PF) IVP 50 mcg IVP once Route: IVP; Site: right antecubital; tm6 Disposition: 10/25 23:54 Co-signature as Attending Physician, Anthony Jones MD I agree with the assessment sp4 and plan of care. I reviewed the patient's care provided by the Advanced Practice Provider and agree with the diagnosis and treatment plan. Disposition Summary: 10/27/23 00:27 Hospitalization Ordered Notes: Hospitalization Status: Inpatient Admission sb4 Provider: Korina Russo sb4 Condition: Fair sb4 Problem: new sb4 Symptoms: are unchanged sb4 Bed/Room Type: Standard sb4 Location: Telemetry/MedSurg (Inpatient)(10/27/23 00:50) cg Room Assignment: 203(10/27/23 01:06) jb4 Diagnosis - acute appendicitis sb4 Forms: - Medication Reconciliation Form sb4 - SBAR form sb4 - Leadership Thank You Letter sb4 Signatures: Dispatcher [employer] EDBrit Levi, RN RN cg Socrates Mae RN RN jb4 Tyesha Kiran, RN RN ha1 Nimco Loo PA-C PA-C sb4 Anthony Jones MD MD sp4 Laurie Madrid RN RN tm6 Reymundo Morrissey RN RN tl4 Corrections: (The following items were deleted from the chart) 21:05 21:03 Home Meds: Cheratussin AC 10-100 mg/5 mL Oral liqd 10 mL every 4 hours; tl4 tl4 21:05 21:03 PMHx: Hypothyroidism; tl4 tl4 21:12 21:03 PSHx: None; tl4 tl4 21:13 21:13 CBC+H.LAB.BRZ ordered. EDNH EDMS 21:13 21:13 COMPREHENSIVE METABOLIC PANEL+C.LAB.BRZ ordered. ED[facility] EDMS 21:13 21:13 LIPASE+C.LAB.BRZ ordered. ED[facility] EDMS 21:13 21:13 Test, Urine+UC.LAB.BRZ ordered. EDMS EDMS 21:13 21:13 Urinalysis+U.LAB.BRZ ordered. ED[facility] EDMS 21:13 21:13 Abdomen Pelvis W Con+CT.RAD.BRZ ordered. EDNH ED[facility] 10/26 00:47 00:27 Telemetry/MedSurg (Inpatient) sb4 cg 00:47 00:27 sb4 cg 00:50 00:47 [facility] ER HOLD cg cg 00:50 00:47 ERHOLD- cg cg 00:50 00:50 cg cg 01:06 00:50 231 cg jb4
--- NOTE | 2023-10-27 00:40 | P.HP ---
Certification for Inpatient Patient admitted to: Observation With expected LOS: <2 Midnights Practitioner: I am a practitioner with admitting privileges, knowledge of patient current condition, hospital course, and medical plan of care. Services: Services provided to patient in accordance with Admission requirements found in Title 42 Section 412.3 of the Code of Federal Regulations Patient History Date of Service: 10/27/23 Reason for admission: Abdominal pain History of Present Illness: 38-year-old with past medical history of Clarissa thyroiditis, obesity on Ozempic, cholecystectomy who presented because of new onset nausea and vomiting as well as abdominal pain. Abdominal pain is in the epigastric extending to the right lower quadrant as well as and left lower quadrants. Patient states vomiting is not bilious. No associated chest pain. No fever chills no diarrhea. On arrival in the ED vital signs were stable afebrile, laboratory workup including CBC and BMP were unremarkable. Lipase was normal. CT of the abdomen and pelvics showed evidence of early acute appendicitis. Patient has been admitted for possible surgical resection. Dr. Biswas has been discussed with by emergency room. Allergies No Known Allergies Allergy (Verified 01/16/19 16:07) Home medications list reviewed: Yes Home Medications: Semaglutide [Ozempic] 10 units SQ Q7H 10/27/23 Spironolactone [Aldactone] 50 mg PO BEDTIME 10/27/23 Thyroid,Pork [[place] Thyroid] 60 mg PO DAILY 10/27/23 - Past Medical/Surgical History Has patient received pneumonia vaccine in the past: No Diabetic: No -: Clarissa thyroiditis -: Obesity -: Cholecystectomy - Family History Family History: Reviewed- Non-Contributory - Family History Father -: Liver disease - Social History Smoking Status: Never smoker Place of Residence: Home Review of Systems Gastrointestinal: Nausea, Vomiting, Abdominal Pain Genitourinary: Frequency Physical Examination - Physical Exam General: Alert, Oriented x3, Obese HEENT: Atraumatic, Normocephalic, PERRLA Neck: Supple, 2+ carotid pulse no bruit, JVD not distended Respiratory: Clear to auscultation bilaterally, Normal air movement Cardiovascular: Normal pulses, Regular rate/rhythm, Normal S1 S2 Gastrointestinal: Normal bowel sounds, Soft and benign, Non-distended, No ascites, Other, Tenderness Musculoskeletal: No clubbing, No swelling Integumentary: No rashes, No breakdown, No significant lesion Neurological: Normal gait, Normal speech, Normal strength at 5/5 x4 extr - Studies Laboratory Data (last 24 hrs) 10/26/23 10/26/23 21:28 21:28 WBC 10.60 Hgb 13.9 Hct 39.9 Plt Count 240 Sodium 135 L Potassium 3.6 BUN 13 Creatinine 0.81 Glucose 118 H Total Bilirubin 0.6 AST 23 ALT 27 Alkaline Phosphatase 58 Lipase 35 Assessment and Plan - Problems (Diagnosis) (1) Acute appendicitis Current Visit: Yes Status: Acute (2) Hypothyroidism Current Visit: Yes Status: Acute (3) Obesity Current Visit: Yes Status: Acute - Plan Impression Acute appendicitis Hypothyroidism Obesityon Ozempic Plan Will admit to observation Start empirical antibiotics with cefepime/Flagyl Gentle IV fluids lactated Ringer's Surgical consult N.p.o. past midnight SCDs for DVT prophylaxis Pain control Disposition possible hospital stay for the next 24 to 48 hours Plan to discharge in: 48 Hours - Advance Directives Does patient have a Living Will: No Does patient have a Durable POA for Healthcare: No - Code Status/Comfort Care Code Status: Full Code Physician Review: Patient Assessed, Agree with Above Assessment and Plan
[2023-10-27] MEDS ORDERED: MORPHINE 2 MG/ML SYR IV PRN (00:41)
[2023-10-27] MEDS ORDERED: FENTANYL CITR 100 MCG/2 ML ONE ×2 (00:42→08:47)
[2023-10-27] MEDS ORDERED: D5 0.9 NS 1,000 ML IV SCH (01:00)
[2023-10-27] MEDS: METRONIDAZOLE 500mg IVPB 500 MG/100 ML BAG IV SCH (01:49)
[2023-10-27] MEDS: Ringers Lactate 1,000 ML IV SCH ×2 (01:49→18:00)
[2023-10-27] MEDS: ONDANSETRON 4 MG/2 ML VIAL IV PRN (01:50)
[2023-10-27 02:07] VITALS: BMI 30.7
[2023-10-27] MEDS ORDERED: ONDANSETRON 4 MG/2 ML VIAL IV PRN (02:29)
--- NOTE | 2023-10-27 07:02 | P.PN ---
Date of Service: 10/27/23 Subjective: seen after surgery doing well ambulated to bathroom pain tolerable ROS: 10 point ROS as noted above, otherwise negative Physical Exam: GEN: Alert, oriented, NAD HEENT: Normal conjunctiva, sclera anicteric CV: Regular rate and rhythm, no edema Pulm: Nonlabored respirations on room air, clear bilaterally ABD: Soft, mild abdominal tenderness, surgical dressing c/d/i Neuro: Normal speech, normal affect vitals reviewed Problem List: Acute appendicitis Incidental findings - Multilobulated right adnexa cystic lesion (6.1x3.8 cm); new finding ; s/p R salpingo-oophorectomy right-sided nephrolithiasis Hypothyroidism hx Clarissa thyroiditis Obesity Acute appendicitis Incidental findings - Multilobulated right adnexa cystic lesion (6.1x3.8 cm); new finding ; s/p R salpingo-oophorectomy CT abdomen (10/25): acute appendicitis, Multilobulated right adnexa cystic lesion (6.1x3.8 cm), right-sided nephrolithiasis. no hydro General surgery, Dr. Biswas performed lap appy after Dr. Howard performed R salpingo-oophorectomy and removal of mass continue empiric cefepime / flagyl (10/26-) continue pepcid continue IVF advance diet PRN analgesics / antiemetics Hypothyroidism hx Clarissa thyroiditis take armour thyroid daily; restart tomorrow Obesity on Ozempic VTE: SCD for now given surgery Code: Full Dispo: home, ~1 day
[2023-10-27] MEDS: THYROID 30 MG TAB PO SCH (07:57)
[2023-10-27] MEDS: BUPIVACAINE 0.5% PF 10 ML VIAL ONE (08:37)
[2023-10-27] MEDS ORDERED: LIDOCAINE 2% MPF 5 ML VIAL ONE (08:47)
[2023-10-27] MEDS ORDERED: MIDAZOLAM HCL 2 MG/2 ML INJ ONE (08:47)
[2023-10-27] MEDS ORDERED: ROCURONIUM 50 MG/5 ML VIAL IV ONE (08:47)
[2023-10-27] MEDS ORDERED: propofoL 200 MG/20 ML VIAL IV ONE (08:47)
[2023-10-27] MEDS ORDERED: ONDANSETRON 4 MG/2 ML VIAL ONE (08:47)
[2023-10-27] MEDS: FAMOTIDINE 20 MG/2 ML VIAL IV SCH (09:00)
[2023-10-27] MEDS: CEFEPIME 1 GM in NA CHLORIDE 0.9% 100 ML IV SCH (09:31)
[2023-10-27] MEDS: Ringers Lactate 1,000 ML IV ONE (10:45)
[2023-10-27] MEDS: BUPIVACAINE 0.25% PF 30 ML VIAL ONE (12:36)
[2023-10-27] MEDS ORDERED: dexAMETHasone 4 MG/ML VIAL ONE (12:44)
[2023-10-27] MEDS ORDERED: Mastisol Adhesive Liq ONE (13:33)
--- NOTE | 2023-10-27 13:42 | P.OP ---
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 Howard is going to dictate her portion of the surgery separately. Patient brought to the OR and placed in supine position. General anesthesia began. Patient placed in the lithotomy position. Patient prepped and draped in usual sterile fashion. Dr. Howard performed her procedure at the beginning of the case. After she finished, I started my procedure. The appendix was identified. It was dilated with mild stranding around it consistent with early acute appendicitis. Mesoappendix identified and divided with LigaSure. Endo KARRI stapling device used to divide the base of the appendix on the cecum. There is no evidence of bowel injury or bleeding noted. Right lower quadrant and pelvis irrigated. Effluent clear. Subsequently, all trocars removed under direct vision. #1 Vicryl used to close the fascial defect at the umbilicus. Subcutaneous was irrigated and bleeding controlled cautery. 3-0 chromic used to reapproximate subcutaneous tissue and close skin. Sterile dressing applied and patient awakened. Patient taken to recovery room in good general condition. CC:
--- NOTE | 2023-10-27 14:00 | PREOPCON ---
Date of Consultation: 10/27/2023 Reason For Consultation: Abdominal pain. History Of Present Illness: The patient is a 38-year-old female who presents to the emergency room w ith acute onset of periumbilical pain associated with nausea and vomiting. No diarrhea or constipati on. No blood in her stool. No dysuria, hematuria. No sore throat, runny nose, cough, headaches, or dizziness. No chest pain. No fever or chills. The patient had 3 deliveries, had a bilateral tubal ligation. Review of Systems: Otherwise unremarkable. Past Medical History: Clarissa's thyroiditis, obesity. Past Surgical History: Cholecystectomy. Allergies: NONE. Social History: The patient does not smoke. Drinks occasionally. Family History: Significant for liver disease in the father and lung cancer in the mother. Physical Examination: Vital Signs: Stable. She is afebrile. General: She is awake, alert, oriented x3. Head and Neck: No icterus. No masses. Chest: Clear. Heart: S1, S2. Abdomen: Soft, nondistended. Positive bowel sounds. Mild right lower quadrant tenderness. No rigi dity or guarding. Questionable rebound. Extremities: Adequately perfused. Nontender. Neurologic: Nonfocal. Laboratory Data: White count was 10.6 with a left shift. Chemistry reviewed. TSH is 2.17. Urine h as esterase positive and reflex for culture. CT of the abdomen and pelvis reviewed, shows dilated ap pendix with mild stranding around the appendix consistent with early acute appendicitis. She also huntley s a 6.1 x 3.8 cm multilobulated cystic lesion in the right adnexa. Assessment: A 38-year-old female with early acute appendicitis and right adnexal mass. Recommendation: Discussed the case with Dr. Howard. She will come and evaluate the right adnexal mass and we will proceed with surgery for the diagnostic laparoscopy, laparoscopic appendectomy, and any procedure that Dr. Howard seems appropriate for the patient. Risks, benefits, alternatives to surgery were explained to the patient. She understands and agrees. /MODL Voice ID: [id number] Report ID: [id number]
[2023-10-27] MEDS: FENTANYL CITR 100 MCG/2 ML ONE (14:33)
--- NOTE | 2023-10-27 15:55 | CON ---
Date of Consultation: 10/27/2023 Reason For Consultation: Sudden onset lower abdominal pain and right ovarian cyst. History Of Present Illness: The patient is a 38-year-old presenting with a sudden onset of lower pel blaise pain that went across her abdomen below the level of the umbilicus, sudden after her dinner last night where she started to have nausea and vomiting and this persisted for over an hour before her hu sband brought her over to the ER. She has not had any preceding fever, nausea, vomiting, chills, preceding the pain. No prior episodes of pelvic pain of this nature. Periods are regular and reports dysmenorrhea. Denies any dyspareuni a, lower urinary tract symptoms or diarrhea or constipation or other bowel symptoms. Review of Systems: A 10-point system review is mostly negative. Has been losing weight on Ozempic. She is on thyroid r eplacement for history of Clarissa's. No recent significant other symptoms. 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 3, para 3, status post tubal ligation after the last regular periods. Has last done a well-woman exam 1 year ago at [place] with her nurse practiti new. No known prior history of ovarian cyst or any other pathology. Past Medical History: Significant for Clarissa's thyroiditis, obesity. Past Surgical History: Tubal ligation. Allergies: NO KNOWN DRUG ALLERGIES. Home Medications: Orick Thyroid, semaglutide 10 units once a week and spironolactone 50 mg every ni ght. Physical Examination: Vital Signs: Most recent available in the system, 97.9 for temperature at 8:40 in the morning, then later 113/68, pulse of 59, and O2 saturation of 96. General: Her pain overnight has significantly subsided and almost pain free at this time. No acute distress. Slightly overweight, but not ill-appearing. No pallor or icterus. Head and neck: Grossly normal. Abdomen: Soft, nondistended, nontender. Extremities: Unremarkable. Pelvic: Not performed at this time as the patient was not on a bed amenable to this. Neurologic: Completely intact. Psychologic: Completely intact. Results: Her urine test was positive and was extremely turbid, had plenty of leukocytes and some red blood cells. However, this was not a clean-catch specimen and therefore with the contamination, it is inconclusive. Her culture is still pending. Her white cell count was 10.6 with a slight left shift with neutrophils at 77% yesterday, no other ab normalities were noted and a CT scan was performed, I reviewed the images individually as well as wit yovani Biswas and there is a right complex adnexal mass. The appendix was also visualized when reviewi ng these images together where there was a retrocecal appendix. It does appear to have a signs of in flammation around it. No ultrasound was available to assess torsion at this point. Assessment And Plan: 1.Sudden onset pelvic pain. This could be differential diagnosis, appendicitis, or ovarian cyst wit h torsion. Her pain at this time has resolved. However, we discussed about the presence of the cyst and an option to either observe or proceed with surgery and the patient chose us to proceed with evon issac. 2.Pelvic mass, right adnexal mass and this appears to be complex in nature and cystic. Ultrasound i s more optimal tool for evaluation and characterization for risk assessment of malignancy given the p atient's age and the appearance of the mass without any internal nodules or thick wall, lymph nodes b eing unremarkable and no fluid consistent with ascites. The risk is very small. This was explained to the patient, recommend right ovarian cystectomy, pelvic washings, and/or right oophorectomy. Ther e is a risk of rupturing the cyst inside. The patient consented for this. Bleeding, infection, inju ry to the surrounding structures were all reviewed and consented. She will have laparoscopic procedu re aspiration if needed. 3.She will follow up in 1 week for path results and further management. 4.Nausea and vomiting. These have resolved and she is doing well. So, we will observe on this. 5.Possible appendicitis. Please refer to Dr. Biswas's note on this. 6.The patient is done with completed childbearing and status post tubal ligation, hydrosalpinx or an ectopic are possibilities though extremely remote. ALAN/YANNICK Voice ID: [id number] Report ID: [id number]
[2023-10-27] MEDS: HYDROMORPHONE HCL 1 MG/ML INJ IV PRN (17:59)
[2023-10-28] MEDS: HYDROCODONE/APAP 7.5/325 MG TAB PO PRN (00:41)
[2023-10-28 03:05] LABS: Absolute Lymphocytes (CBC) 1.2 K/uL (0.7-4.9); Absolute Monocytes 0.5 K/uL (0.1-1.3); Absolute Neutrophil 6.4 K/uL (1.8-8.0); Basophils % 0.1 % (0-1.3); Hematocrit 33.5 % (36.0-45.0); Hemoglobin 11.8 g/dL (12.0-15.0); Lymphocytes % 15.2 % (15.3-44.8); MCH 31.9 pg (27.0-35.0); MCHC 35.3 g/dL (32.0-36.0); MCV 90.4 fL (80-100); MPV 8.5 fL (7.6-11.3); Monocytes % 5.7 % (3.3-12.3); Nucleated Red Blood Cells % 0.1 % (0-0); Platelets 212 thou/uL (152-406); RBC Red Blood Cell Count 3.71 M/uL (3.86-4.86); Red Cell Distribution Width 12.8 % (12.1-15.2)
[2023-10-28 09:06] VITALS: O2SAT 96
--- NOTE | 2023-10-28 09:32 | PN ---
Date of Progress Note: 10/28/2023 Subjective: The patient is awake and alert. No complaint. Pain is better. Objective: Vital Signs: Stable, afebrile. Abdomen: Benign. Dressing clean, dry, intact. Laboratory Data: Reviewed. Assessment: Status post laparoscopic appendectomy and right salpingo-oophorectomy for ovarian mass. Recommendations: The patient is cleared from surgery standpoint for discharge. Discharge instructio ns given. The patient will follow up with Dr. Howard as well as myself. Pain medicine and antibio tics have been provided for the patient. /MODL Voice ID: [id number] Report ID: [id number]
--- NOTE | 2023-10-28 09:57 | P.DS ---
Admission Date: 10/27/23 Discharge Date: 10/28/23 Disposition: ROUTINE DISCHARGE Discharge Condition: GOOD Reason for Admission: Abdominal pain Consultations: General Surgery - Dr. True MEJIA - Dr. Howard Brief History of Present Illness: 38yo M, PMH: Clarissa thyroiditis, obesity on Ozempic, cholecystectomy Patient presented because of new onset nausea and vomiting as well as abdominal pain. Abdominal pain is in the epigastric extending to the right lower quadrant as well as and left lower quadrants. Patient states vomiting is not bilious. No associated chest pain. No fever chills no diarrhea.On arrival in the ED vital signs were stable afebrile, laboratory workup including CBC and BMP were unremarkable. Lipase was normal. CT of the abdomen and pelvics showed evidence of early acute appendicitis. Patient has been admitted for possible surgical resection. Dr. Biswas has been discussed with by emergency room. Hospital Course: Problem List: Acute appendicitis, s/p lap appendectomy (10/26) Incidental findings - Multilobulated right adnexa cystic lesion (6.1x3.8 cm), s/p R salpingo-oophorectomy (10/26) right-sided nephrolithiasis Hypothyroidism hx Clarissa thyroiditis Obesity Physician Discharge Instructions: Patient presented to the ED with worsening abdominal pain, nausea/vomiting and was found to have early acute appendicitis, seen on CT. CT also incidentally noted a multilobulated right adnexa cystic lesion (6.1x3.8 cm), a new findings for patient. Dr. Howard, OBGYN, was consulted to eval new pelvic pain/mass. Discussed possible options with patient, who decided to proceed with surgical intervention. Patient was taken to the OR on 10/26 and underwent R salpingo-oo phorectomy with Dr. Howard followed by lap appendectomy with Dr. Biswas, general surgeon, after the mass was removed. Patient is to follow up with Dr. Howard in office in 1 week for further management and to discuss path results. Patient did well post-operatively, was feeling better, abdominal pain improved, afebrile without leukocytosis, and was deemed stable for discharge with follow up with Dr. Biswas in ~1 week in office. Patient is to complete 1 week of ciprofloxacin on discharge. Patient tolerating diet and ambulating without issues on day of discharge. Medications: ciprofloxacin for 1 week O'Kean 7.5 and colace sent per Dr. Biswas Follow up: PCP 3-5 days General surgery, Dr. Biswas in 1 week OBGYN, Dr Howard in 1 week Please call to confirm / schedule appointments Physical Exam: GEN: Alert, oriented, NAD HEENT: Normal conjunctiva, sclera anicteric CV: Regular rate and rhythm, no edema Pulm: Nonlabored respirations on room air, clear bilaterally ABD: Soft, minimal abdominal tenderness, surgical dressing c/d/i MSK: no joint tenderness Integumentary: No rashes Neuro: Normal speech, normal affect Vital Signs/Physical Exam: Temp Pulse Resp BP Pulse Ox 98.2 F 72 18 93/52 L 97 10/28/23 08:00 10/28/23 08:00 10/28/23 08:00 10/28/23 08:00 10/28/23 08:00 Laboratory Data at Discharge: WBC 8.10 thou/uL (4.3-10.9) 10/28/23 02:16 Hgb 11.8 g/dL (12.0-15.0) L 10/28/23 02:16 Hct 33.5 % (36.0-45.0) L 10/28/23 02:16 Plt Count 212 thou/uL (152-406) 10/28/23 02:16 Sodium 135 mEq/L (136-145) L 10/26/23 21:28 Potassium 3.6 mEq/L (3.5-5.1) 10/26/23 21:28 BUN 13 mg/dL (7-18) 10/26/23 21:28 Creatinine 0.81 mg/dL (0.55-1.02) 10/26/23 21:28 Glucose 118 mg/dL (74-106) H 10/26/23 21:28 Total Bilirubin 0.6 mg/dL (0.2-1.0) 10/26/23 21:28 AST 23 U/L (15-37) 10/26/23 21:28 ALT 27 U/L (13-56) 10/26/23 21:28 Alkaline Phosphatase 58 U/L (45-117) 10/26/23 21:28 Lipase 35 U/L (13-75) 10/26/23 21:28 Home Medications: Semaglutide [Ozempic] 10 units SQ Q7H 10/27/23 Spironolactone [Aldactone] 50 mg PO BEDTIME 10/27/23 Thyroid,Pork [[place] Thyroid] 60 mg PO DAILY 10/27/23 Ciprofloxacin HCl 500 mg PO BID 7 Days #14 tab 10/28/23 New Medications: Ciprofloxacin HCl 500 mg PO BID 7 Days #14 tab Physician Discharge Instructions: Physician Discharge Instructions: Patient presented to the ED with worsening abdominal pain, nausea/vomiting and was found to have early acute appendicitis, seen on CT. CT also incidentally noted a multilobulated right adnexa cystic lesion (6.1x3.8 cm), a new findings for patient. Dr. Howard, OBGYN, was consulted to eval new pelvic pain/mass. Discussed possible options with patient, who decided to proceed with surgical intervention. Patient was taken to the OR on 10/26 and underwent R salpingo- oophorectomy with Dr. Howard followed by lap appendectomy with Dr. Biswas, [facility] surgeon, after the mass was removed. Patient is to follow up with Dr. Howard in office in 1 week for further management and to discuss path results. Patient did well post-operatively, was feeling better, abdominal pain improved, afebrile without leukocytosis, and was deemed stable for discharge with follow up with Dr. Biswas in ~1 week in office. Patient is to complete 1 week of ciprofloxacin on discharge. Patient tolerating diet and ambulating without issues on day of discharge. Medications: ciprofloxacin for 1 week O'Kean 7.5 and colace sent per Dr. Biswas Follow up: PCP 3-5 days General surgery, Dr. Biswas in 1 week OBGYNDr Howard in 1 week Please call to confirm / schedule appointments May shower today Remove dressing after shower Keep Steri-Strips on at all times No heavy lifting or strenuous exercise Incentive spirometry as instructed Follow-up my office 1 week, call for appointment O'Kean 7.5 and Colace have been called into patient's pharmacy Diet: Regular Activity: No lifting more than 10 lbs Followup: NONE,NONE [Primary Care Provider] - Time spent managing pt's care (in minutes): 45
[2023-10-28 10:23] VITALS: BP 93/52; TEMP 98.2
--- NOTE | 2023-10-29 10:50 | OP ---
Date of Procedure: 10/27/2023 Surgeon: Carrie Howard MD Printed Products Assembler: Naomi Esquivel. Preoperative Diagnoses: Sudden onset pelvic pain, right adnexal mass, possible torsion. Postoperative Diagnoses: Pelvic pain, right complex adnexal cystic mass, likely dermoid, and appendi citis. Anesthesia: General endotracheal. Specimens: Right ovary and tube along with the cyst. aspirated and removed in the bag wi thout any spillage and pelvic washings for cytology. Complications: None. Drains: None. Estimated Blood Loss: Minimal. Condition: Stable. Please refer to her consult note for all the historical details. Description Of Procedure: The patient was taken back to the OR, placed in a supine fashion on the op erating table. General anesthesia was given. She was placed in a dorsal lithotomy position using Al regine stirrups. Abdomen, vulva, vagina, and perineum were prepped and draped in a sterile fashion. Fo jluis was placed to drain the bladder and speculum placed to expose the cervix. Anterior lip grasped w ith a single-tooth tenaculum, dilated to 16-Comor[place], and the uterine manipulator introduced into place and the tenaculum and all other instruments were removed and this area was draped. 1 cm infraumbilical incision was made with a scalpel using the open laparoscopy technique. Fascia wa s incised, tagged with 0 Vicryl sutures. Peritoneum entered sharply and Cat introduced. After ad equate insufflation, site of entry was checked and was unremarkable. Left lower quadrant 5 port and suprapubic 5 port were placed after injecting the fascia and skin with 0.25% bupivacaine. After nathan cing the trocars under direct vision, the instruments were inserted and survey of the pelvic cavity w as conducted. No evidence of any endometriosis. On close examination of all the pelvic and abdomina l peritoneum, appendix appeared to be inflamed. However, the right adnexal mass was significantly en larged and complex. The tube was uninvolved. 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 Due to the complexity of the mass and the size of it, I decided to perform a right s alpingo-oophorectomy for which she has also consented. The entire tube including the Essure coil fro m the right side were all completely removed and tube transected with the help of LigaSure all the wa y through the proximal part to the fimbriated end. The utero-ovarian ligament was also taken down an d dissected all the way down to the IP ligament. Once the peritoneum between the IP and the ureter w ere opened up, the pedicle of the right ovary was cauterized and cut with the LigaSure. The left ova ry was completely unremarkable and the left tube was completely unremarkable. Both ureters were undi sturbed in their anatomical location. I have changed over to a 5 camera and used a specimen bag through the 10 port. The specimen was plac ed inside the bag and extracted at the level of the umbilical scar. All the trocars were removed und er direct vision. Thorough irrigation and suction were performed. There was excellent hemostasis be fore I extracted the specimen. Once the infraumbilical incision was slightly extended at the fascia, the bag was opened up, held wit h Gabbie clamps on 3 sides, then carefully the cyst was ruptured with an 11 blade in a controlled fas ion suction to suction out all the fluid cyst followed by the sebaceous material and hair. Once all these were evacuated, the specimen bag was pulled out intact with the cyst. The fascial c losure was closed with the help of 0 Vicryl in a continuous running fashion and tagged 0 Vicryl sutur es tied to each other. Subcutaneous tissues stitched with a simple 0 Vicryl stitch and subcuticular i nterrupted 4-0 Monocryl sutures for all incisions. Uterine manipulator and Falk were removed. Inst rument, needle, and sponge counts were correct at the end of the case. The patient tolerated the pro cedure well. The cyst fluid was also sent for cytology. The patient's was briefed about her procedure and she will come back to see us in 3-month postop and we will send a note to the [facility] where she has seen her primary care nurse practitioner ALAN/MODL Voice ID: [id number] Report ID: [id number]
--- NOTE | 2023-10-30 20:40 | RAD REPORT ---
EXAM DESCRIPTION: CT - Abdomen Pelvis W Contrast - 10/27/2023 6:41 am CLINICAL HISTORY: 38 years Female; ABD PAIN; IV ONLY Bed Name: 8 TECHNIQUE: CT of the abdomen and pelvis with intravenous contrast. All CT scans at this facility use dose modulation, iterative reconstruction, and/or weight based dosi ng when appropriate to reduce radiation dose to as low as reasonably achievable. COMPARISON: None. FINDINGS: Lower thorax: Bibasilar atelectasis. Abdomen: Stomach: Within normal limits Liver: No focal lesions. No intrahepatic ductal distention. Gallbladder: Surgically absent. Pancreas: Within normal limits Spleen: Within normal limits Right kidney: No hydronephrosis. Tiny 1 to 2 mm renal stone. Left kidney: No hydronephrosis. Subcentimeter hypodensities, too small to characterize. Adrenal glands: Within normal limits Vascular structures: Within normal limits Nodes: No lymphadenopathy by size criteria Pelvis: Small bowel: No significant distention. Appendix: Dilated measuring up to 10 mm. Mild surrounding stranding. Colon: No distention or acute pericolonic edema. Peritoneum: No free intraperitoneal fluid or air. Bones: No acute bone findings. Bladder: Under distended, limiting evaluation. Reproductive organs: Curvilinear radiodensities in the bilateral adnexa, likely Essure contraceptive devices. Multilobulated cystic lesion in the right adnexa measuring 6.1 x 3.8 cm. IMPRESSION: 1. Dilated appendix measuring up to 10 mm with mild surrounding stranding, concerning for acute appendicitis. No free air. 2. Multilobulated cystic lesion in the right adnexa measuring 6.1 x 3.8 cm. Recommend pelvic ultras ound for evaluation. 3. Right-sided nephrolithiasis. No hydronephrosis. Electronically signed by: Keisha Zavala MD 10/27/2023 12:10 AM CDT Due to temporary technical issues with the PACS/Fluency reporting system, reports are being signed by the in house radiologists without review as a courtesy to insure prompt reporting. The interpreting radiologist is fully responsible for the content of the report.
== END 2023-10-28 10:55 | disposition home or self-care (01) ==
LOC: ER 20:52 → ERHOLD 10-27 00:41 → 2ND 10-27 01:01
PROVIDERS: ADMIT Internal Medicine; ATTEND Hospitalist
PROC: 0UT54ZZ Resection of Right Fallopian Tube, Percutaneous Endoscopic Approach (ICD-10-PCS; 2023-10-27)
PROC: 0UT04ZZ Resection of Right Ovary, Percutaneous Endoscopic Approach (ICD-10-PCS; 2023-10-27)
PROC: 0DTJ4ZZ Resection of Appendix, Percutaneous Endoscopic Approach (ICD-10-PCS; principal; 2023-10-27 10:00)
DX: K35.80 Unspecified acute appendicitis (principal); N83.201 Unspecified ovarian cyst, right side; E06.3 Autoimmune thyroiditis; E66.9 Obesity, unspecified; R11.2 Nausea with vomiting, unspecified; E03.9 Hypothyroidism, unspecified; N20.0 Calculus of kidney; Z68.30 Body mass index [BMI] 30.0-30.9, adult
CPT/HCPCS: 96361; 87088; 85025 ×2; 81001; 87086; 36415 ×2; 81025; 84443; 83690; 80053; 74177; 94010; 96375; 96374; 99285; 44970; 58661; Q9967; J2704; J1100; J2543; J2001; J2250; J3010 ×3; J1170; J2405 ×3; J7120 ×3; J7030; J0692 ×2; 88304; G0378